=== PATIENT | female | born 1985 | race Caucasian/White ===

== ENCOUNTER 2021-01-17 17:51 | Emergency (ER) | payer OTHER, SELFPAY ==
[2021-01-17 17:53] VITALS: BP 127/77; PULSE 70; RESP 16; TEMP 36.1; O2SAT 100
--- NOTE | 2021-01-17 18:06 | ED.SKABFB ---
HPI - Skin/Abscess/Foreign Bdy General Chief complaint: Skin/Abscess/Foreign Body Stated complaint: Left leg infection Time Seen by Provider: 01/17/21 17:53 History of Present Illness HPI narrative: 35 yo female presents to the ED for an abscess. She has had painful swelling and redness to the left burgos for more than one week. She has been on 2 antibiotics without improvement. Denies any systemic symptoms. Related Data Allergies Allergy/AdvReac Type Severity Reaction Status Date / Time No Known Allergies Allergy Verified 01/17/21 18:18 Review of Systems Review of Systems: All systems reviewed & are unremarkable except as noted in HPI and below Constitutional: Constitutional: Denies chills, Denies fatigue, Denies fever(s) and Denies weakness PMFSH Past Medical History Medical History (Updated 01/26/21 @ 13:19 by Alonso Reeves MD) Healthy female adult Social History Social History (Updated 01/26/21 @ 13:20 by Alonso Reeves MD) Smoking status: Never smoker Substance use: never Exam Const: General: healthy appearing, no acute distress and alert Orientation/consciousness: patient oriented x3 HENMT: Head: normal to inspection Neck: Neck: normal visual inspection Resp: Effort & Inspection: normal respiratory effort Auscultation: clear to auscultation bilaterally, no rales, no rhonchi and no wheezes Cardio: Jugular venous distension: no JVD Rate: regular rate Rhythm: regular rhythm Heart sounds: no murmurs Other: 2+ left DP Skin: Other: 7x5 area of erythema and induration to the left burgos with central fluctuance. Neuro: General: patient oriented x3 and moves all extremities Speech: normal speech Psych: Appearance: well kempt Affect: normal affect Course Vital Signs Vital signs: Vital Signs Temperature 36.1 C L 01/17/21 17:53 Pulse Rate 70 01/17/21 17:53 Respiratory Rate 16 01/17/21 17:53 Blood Pressure 127/77 01/17/21 17:53 Pulse Oximetry 100 01/17/21 17:53 Temperature 36.1 C L 01/17/21 17:53 Pulse Rate 70 01/17/21 17:53 Respiratory Rate 16 01/17/21 17:53 Blood Pressure 127/77 01/17/21 17:53 Pulse Oximetry 100 01/17/21 17:53 Procedures Abscess I/D lower extremity: Side (if applicable): left Local Anesthetic: lidocaine 1% and with epi Amount of anesthesia used (mL): 8 Technique: incised with #11 blade Amount of fluid expressed (mL): 4 Irrigation: Yes Packing used?: iodoform I&D Results: Pus MDM - Skin/Abscess/Foreign Bdy MDM Narrative Medical decision making narrative: Abscess drained. She is on an appropriate antibiotic and I believe that the treatment failure was due to the fact that she needed an I&D. I will extend the course. Differential Diagnosis Differential diagnosis: Likely abscess of skin or subcutaneous tissue Medical Records Attestation: I reviewed the patient's medical records. Discharge Plan Discharge Clinical Impression: Abscess of skin or subcutaneous tissue Patient Disposition: Home, Self-Care Condition: Stable Instructions: Antibiotic Form, Abscess (ED) Additional Instructions: Remove packing in 48 hours Prescriptions: New clindamycin HCl 150 mg capsule 450 mg PO Q6H 7 Days Qty: 84 RF: 0 Follow-up/Referrals: PHYSICIAN,HARMONIC ANALYST [Primary Care Provider] - Gary Cain MD [Physician] -
[2021-01-17] MEDS: MORPHINE SULFATE INJ (*CRX) 10 MG/ML AMP 4 MG IM (18:14)
[2021-01-17] MEDS: KETOROLAC (*BKC) 60 MG/2 ML VIAL IM (18:15)
== END 2021-01-17 19:12 | disposition home or self-care (01) ==
PROVIDERS: Emergency Provider Emergency Medicine
DX: L02.416 Cutaneous abscess of left lower limb (principal)
CPT/HCPCS: 10061; 96372; 99284; J1885; J2270